=== PATIENT | male | born 1970 | race Caucasian/White ===

== ENCOUNTER 2022-12-13 08:36 | Observation (INO) | payer BC, MEDICARE ==
[~2022-12-13] VITALS: Ht 175.3 cm; Wt 84.1 kg
[2022-12-13] MEDS ORDERED: nitroGLYCERIN 0.4mg SUBLingual tab SL PRN ×2 (08:50→10:25)
[2022-12-13] MEDS ORDERED: aspirin 81mg tab.chew PO ONE (08:50)
[2022-12-13 08:58] LABS: BASOPHILS % (AUTO) 0.8 % (0-1); EOSINOPHILS # (AUTO) 0.1 X10'3 (0-0.9); EOSINOPHILS % (AUTO) 1.8 % (0-6); HEMATOCRIT 44.5 % (42.0-52.0); LYMPHOCYTES # (AUTO) 0.8 X10'3 (1.1-4.8); LYMPHOCYTES % (AUTO) 19.6 % (21-51); MEAN CORPUSCULAR HEMOGLOBIN 30.1 PG (27.0-31.0); MEAN CORPUSCULAR HGB CONC 33.6 g/dL (33.0-36.5); MEAN CORPUSCULAR VOLUME 89.4 FL (78-98); MONOCYTES # (AUTO) 0.4 X10'3 (0-0.9); MONOCYTES % (AUTO) 8.5 % (2-12); NEUTROPHILS # (AUTO) 2.9 X10'3 (1.8-7.7); NEUTROPHILS % (AUTO) 69.3 % (42-75); PLATELET COUNT 242 X10'3 (140-440); RED BLOOD COUNT 4.98 X10'6 (4.70-6.10); RED CELL DISTRIBUTION WIDTH 13.6 % (11.5-14.5); WHITE BLOOD COUNT 4.1 X10'3 (4.5-11.0)
[2022-12-13 09:38] LABS: ALANINE AMINOTRANSFERASE 35 U/L (12-78); ALBUMIN 4.5 G/DL (3.4-5.0); ALBUMIN/GLOBULIN RATIO 1.7 (1.1-1.5); ALKALINE PHOSPHATASE 75 IU/L (46-116); ANION GAP 8 (8-16); ASPARTATE AMINO TRANSFERASE 26 U/L (10-37); BILIRUBIN,TOTAL 0.4 MG/DL (0.1-1.0); BLOOD UREA NITROGEN 8 MG/DL (7-18); CALCIUM 8.9 MG/DL (8.5-10.1); CHLORIDE 103 MMOL/L (99-107); GLUCOSE 129 MG/DL (70-104); MAGNESIUM 2.3 MG/DL (1.5-2.4); POTASSIUM 3.8 MMOL/L (3.5-5.1); SODIUM 139 MMOL/L (135-145); TOTAL CARBON DIOXIDE 27.9 MMOL/L (24-32); TOTAL PROTEIN 7.2 G/DL (6.4-8.2); eGFR > 90 ML/MIN
[2022-12-13] MEDS ORDERED: metoprolol tartrate 50mg tablet PO ONE (09:50)
[2022-12-13] MEDS ORDERED: potassium Cl 40MEQ/1/2NS 520ml 520 ML IV PRN (10:25)
[2022-12-13] MEDS ORDERED: acetaminophen 325mg tablet PO PRN (10:25)
[2022-12-13] MEDS ORDERED: magnesium 4gm in 100ml NS 100 ML IV PRN (10:25)
[2022-12-13] MEDS ORDERED: aminophylline 250mg/10ml inj. IV PRN (10:25)
[2022-12-13] MEDS ORDERED: metoprolol tartrate 1mg/ml inj IV PRN (10:25)
[2022-12-13] MEDS ORDERED: potassium Cl 20 mEq SR tablet PO PRN ×2 (10:25)
[2022-12-13] MEDS ORDERED: ondansetron/PF 4mg/2ml inj IV PRN (10:25)
[2022-12-13] MEDS ORDERED: regadenoson 0.4mg/5ml syringe IV PRN (10:25)
[2022-12-13] MEDS ORDERED: mag hydrox/Alum hydrox/simeth 30ml oral suspension PO PRN (10:25)
[2022-12-13] MEDS ORDERED: morphine 2 MG/ML inj. syringe IV PRN (10:25)
[2022-12-13] MEDS ORDERED: magnesium Cl slow-release 64mg tablet PO PRN (10:25)
[2022-12-13] MEDS ORDERED: magnesium hydroxide 30ml (MOM) UD suspension PO PRN (10:25)
[2022-12-13] MEDS: normal saline 1000ml 1,000 ML IV SCH ×2 (10:45→20:25)
--- NOTE | 2022-12-13 11:22 | NUR ---
Patient's Karen called, updated her about patient condition and plan of care. Her cellphone [phone]
[2022-12-13] MEDS: morphine 2 MG/ML inj. syringe IV PRN ×2 (11:29→16:04)
[2022-12-13 12:04] LABS: MAGNESIUM 2.2 MG/DL (1.5-2.4); POTASSIUM 4.1 MMOL/L (3.5-5.1)
--- NOTE | 2022-12-13 13:05 | NUR ---
Attempted to give report to PCU, the nurse assigned not currently available. Requested me to call back in 5 minutes
[2022-12-13 13:36] VITALS: BP 126/84
[2022-12-13 13:39] LABS: CLARITY,URINE CLOUDY (Clear); COLOR,URINE YELLOW (Yellow); GLUCOSE, URINE NEGATIVE (Neg); KETONES,URINE NEGATIVE (Neg); LEUKOCYTE ESTERASE ,URINE NEGATIVE (Neg); NITRITES, URINE NEGATIVE (Neg); OCCULT BLOOD,URINE NEGATIVE (Neg); PROTEIN,URINE NEGATIVE (Neg); UROBILINOGEN,URINE 0.2 E.U/dL (0.2-1.0)
[2022-12-13 13:45] LABS: UA COLLECTION TYPE NON-SPECIFIED
[2022-12-13 13:48] LABS: MUCUS STRANDS MANY /LPF (Neg); SQUAMOUS EPITHELIAL CELL,UR FEW /LPF (FEW)
--- NOTE | 2022-12-13 13:49 | NUR ---
Patient in room ED 3. I have received report from Yanni RAY and had the opportunity to ask questions and assume patient care. Pt arrived from ED in wheelchair, able to ambulate with no assistance to bed. Pt has PIV to Right FA, Ns @ 100ml hr per ER Nurse. Alert and oriented x 4. Denies chest pain. V/S 126/84, Hr 63, RR 16, T 98.5, SPO2 99% on RA Addendum: 12/13/22 at 1351 by Mauricio Berkowitz LVN Amended: Links added. Addendum: 12/13/22 at 1416 by Mauricio Berkowitz LVN Pt room is [facility]
[2022-12-13 13:50] LABS: BACTERIA,URINE FEW /HPF (Neg); RBC,URINE 0-2 /HPF (0-2); WBC,URINE 0-4 /HPF (0-4)
[2022-12-13] MEDS ORDERED: MSC30T PO (13:57)
[2022-12-13 13:58] LABS: URINE AMPHETAMINE SCREEN NEGATIVE (Neg); URINE BARBITUATE SCREEN NEGATIVE (Neg); URINE BENZODIAZEPINES SCREEN NEGATIVE (Neg); URINE CANNABINOID SCREEN POSITIVE (Neg); URINE COCAINE SCREEN NEGATIVE (Neg); URINE METHADONE SCREEN NEGATIVE (Neg); URINE OPIATE SCREEN POSITIVE (Neg); URINE PHENCYCLIDINE SCREEN NEGATIVE (Neg)
[2022-12-13] MEDS ORDERED: LUMA42CA PO (14:00)
[2022-12-13] MEDS ORDERED: HYDR-3968 PO (14:00)
[2022-12-13] MEDS ORDERED: OXCA150T14 PO (14:00)
[2022-12-13] MEDS ORDERED: ATOR20TA66 PO (14:00)
--- NOTE | 2022-12-13 14:16 | NUR ---
Paged. Page Sent PAGER ID: [phone] MESSAGE: [id number] Jose- Can you please review med reconciliation. Pt has chronic pain and present pain 03/06. Thank you so much. Parag Berkowitz LVN
[2022-12-13] MEDS ORDERED: ATOR40TA72 PO (14:21)
--- NOTE | 2022-12-13 16:48 | NUR ---
Pt smokes weed. Stop smoking cigarrettes x 1 year ago Addendum: 12/13/22 at 1649 by Mauricio Berkowitz LVN Amended: Links added.
--- NOTE | 2022-12-13 16:55 | NUR ---
Pt reported brief chest pain 1/10 for duration 15 seconds, upon assessment-asymptomatic. Per technician assistant- Pt had PVC. Will continue to monitor
--- NOTE | 2022-12-13 17:30 | NUR ---
Paged. Page Sent PAGER ID: [phone] MESSAGE: [id number]- Mynor. Dr. Mcgowan, can you review meds for patient. He will be due for a MS Contin for NOC shift. Thanks. Parag Berkowitz LVN. (130 character message out of a maximum of 240)
--- NOTE | 2022-12-13 17:31 | NUR ---
Obtained in ER Addendum: 12/13/22 at 1732 by Mauricio Berkowitz LVN Amended: Links added.
--- NOTE | 2022-12-13 17:43 | NUR ---
Correction: Assessment performed 1400hrs. Addendum: 12/13/22 at 1744 by Mauricio Berkowitz LVN Amended: Links added.
[2022-12-13] MEDS ORDERED: ACETAMINOPHEN PO PRN (17:55)
[2022-12-13] MEDS ORDERED: HYDROCODONE BIT PO PRN (17:55)
--- NOTE | 2022-12-13 18:30 | NUR ---
Patient in room PCU 3024. I have received report from Mauricio GALLARDO and had the opportunity to ask questions and assume patient care.
--- NOTE | 2022-12-13 18:32 | NUR ---
Problems reprioritized. Patient report given, questions answered & plan of care reviewed with Genny GALLARDO. Bedside report given.
[2022-12-13] MEDS: heparin, porcine 5000 units/ml vial SQ SCH (20:00)
[2022-12-13] MEDS: K and/or MAG REPLACEMENT MC SCH (20:00)
[2022-12-13] MEDS: docusate sod 100mg capsule PO SCH (20:02)
[2022-12-13] MEDS: morphine ER 30mg tablet PO SCH (20:03)
[2022-12-13] MEDS ORDERED: temazepam 15mg capsule PO PRN (20:25)
[2022-12-13] MEDS ORDERED: oxcarbazepine 150mg tablet PO SCH (21:00)
[2022-12-13] MEDS ORDERED: LUMATEPERONE TOSYLATE PO SCH (21:00)
[2022-12-14] VITALS (11 sets, daily range): BP systolic 114–161; BP diastolic 73–82
[2022-12-14 06:12] LABS: BASOPHILS % (AUTO) 0.9 % (0-1); EOSINOPHILS # (AUTO) 0.2 X10'3 (0-0.9); EOSINOPHILS % (AUTO) 3.5 % (0-6); HEMATOCRIT 44.9 % (42.0-52.0); HEMOGLOBIN 15.3 g/dl (14.0-17.9); LYMPHOCYTES # (AUTO) 1.5 X10'3 (1.1-4.8); LYMPHOCYTES % (AUTO) 30.3 % (21-51); MEAN CORPUSCULAR HEMOGLOBIN 30.6 PG (27.0-31.0); MEAN CORPUSCULAR HGB CONC 33.9 g/dL (33.0-36.5); MEAN CORPUSCULAR VOLUME 90.3 FL (78-98); MEAN PLATELET VOLUME 7.6 FL (7.4-10.4); MONOCYTES # (AUTO) 0.4 X10'3 (0-0.9); MONOCYTES % (AUTO) 8.2 % (2-12); NEUTROPHILS # (AUTO) 2.8 X10'3 (1.8-7.7); NEUTROPHILS % (AUTO) 57.1 % (42-75); PLATELET COUNT 217 X10'3 (140-440); RED BLOOD COUNT 4.98 X10'6 (4.70-6.10); RED CELL DISTRIBUTION WIDTH 13.6 % (11.5-14.5); WHITE BLOOD COUNT 4.8 X10'3 (4.5-11.0)
[2022-12-14 06:17] LABS: ANION GAP 7 (8-16); BLOOD UREA NITROGEN 10 MG/DL (7-18); BUN/CREATININE RATIO 14.7 (5.4-32.0); CALCIUM 8.8 MG/DL (8.5-10.1); CHLORIDE 106 MMOL/L (99-107); CREATININE 0.68 MG/DL (0.60-1.10); GLUCOSE 103 MG/DL (70-104); MAGNESIUM 2.3 MG/DL (1.5-2.4); POTASSIUM 4.2 MMOL/L (3.5-5.1); SODIUM 140 MMOL/L (135-145); eGFR > 90 ML/MIN
--- NOTE | 2022-12-14 06:17 | NUR ---
Problems reprioritized. Patient report given, questions answered & plan of care reviewed with Mauricio GALLARDO.
--- NOTE | 2022-12-14 06:30 | NUR ---
Patient in room PCU 3024. I have received report from Genny GALLARDO and had the opportunity to ask questions and assume patient care.
--- NOTE | 2022-12-14 07:15 | NUR ---
Agree with Pallavi GAME TRAPPER assessment except where I documented my findings.
[2022-12-14] MEDS: morphine ER 30mg tablet PO SCH (07:42)
[2022-12-14] MEDS: docusate sod 100mg capsule PO SCH (07:42)
[2022-12-14] MEDS ORDERED: atorvastatin 20mg tablet PO SCH (08:00)
[2022-12-14] MEDS: heparin, porcine 5000 units/ml vial SQ SCH (08:00)
[2022-12-14] MEDS: K and/or MAG REPLACEMENT MC SCH (08:00)
[2022-12-14] MEDS: normal saline 1000ml 1,000 ML IV SCH (08:04)
--- NOTE | 2022-12-14 08:15 | NUR ---
Pt left for stress test/ lexiscan
--- NOTE | 2022-12-14 10:20 | NUR ---
Pt back from lexiscan/ stress test.
--- NOTE | 2022-12-14 10:36 | NUR ---
paged Page Sent promotional table spacer PAGER ID: [phone] MESSAGE: [id number]- Mynor. Pt back from stress test/ lexiscan. Pt reporting 1/10 chest pain to left side of heart. EKG in progress. LDmitri Berkowitz BUSINESS AREA DIRECTOR
--- NOTE | 2022-12-14 12:48 | NUR ---
All written and verbal instructions provided to patient and spouse. All questions answered. PIV discontinued. Telebox discontinued. Pt will follow up with PCP in [address] Townsend in 2-3 weeks. Pt verbalized understanding if symptoms worsen to return to ER. Pt declined using w/c to ambulate to lobby. Pt stated he is able to walk. Pt has vehicle downstairs in handicap parking. Encouraged to review with security about leaving overnight. He verbalized understanding. Addendum: 12/14/22 at 1253 by Mauricio Berkowitz LVN Amended: Links added.
== END 2022-12-14 12:36 | disposition home or self-care (01) ==
LOC: ER 08:37 → ED HOLD 10:29 → PCU 3S 14:13
PROVIDERS: ADMIT Family Medicine; ATTEND Family Medicine
DX: R07.89 Other chest pain (principal); G89.4 Chronic pain syndrome; F99 Mental disorder, not otherwise specified; E78.5 Hyperlipidemia, unspecified; I47.1 Supraventricular tachycardia; I10 Essential (primary) hypertension; I20.9 Angina pectoris, unspecified; Z87.891 Personal history of nicotine dependence; Z79.899 Other long term (current) drug therapy
CPT/HCPCS: 36415; 71045; 78452; 80048; 80053; 80305; 81001; 83735; 83880; 84132; 84484; 85025; 87081; 93005; 93017; 96361; 96374; 96376; 99285; A6258; A9500; G0378; J2270; J2785; J7030; A6449